=== PATIENT | male | born 1970 | race Caucasian/White ===

== ENCOUNTER 2018-09-14 05:48 | Inpatient (IN) | payer OTHER ==
[~2018-09-14] VITALS: Ht 193 cm; Wt 105.4 kg
[2018-09-14] VITALS (36 sets, daily range): BP systolic 130–181; BP diastolic 63–102; PULSE 86–118; RESP 14–26; Ht 193 cm; Wt 105.4 kg
[2018-09-14] MEDS ORDERED: POLYMYXIN/BACITRACIN 1L IRRIG ONE (06:47)
[2018-09-14] MEDS ORDERED: ROCURONIUM 50 MG INJ ONE (07:00)
[2018-09-14] MEDS ORDERED: DEXAMETHASONE 4 MG/ML 5 ML INJ ONE (07:00)
[2018-09-14] MEDS ORDERED: METOCLOPRAMIDE 10 MG INJ ONE (07:00)
[2018-09-14] MEDS ORDERED: CLINDAMYCIN 900 MG/50 ML D5W IVPB IVPB ONE (07:00)
--- NOTE | 2018-09-14 07:08 | HPN ---
Date/Time of Note Date/Time of Note DATE: 09/14/18 TIME: 07:08 Interval H&P Admission Note Pt. seen H&P reviewed: No system changes BRITTANY BAUMAN MD Sep 14, 2018 07:08
[2018-09-14] MEDS ORDERED: BUPIVACAINE 0.5%/EPI (SDV) 30 ML INJ ONE (07:11)
[2018-09-14] MEDS ORDERED: GELATIN SIZE 100 SPONGE ONE (07:11)
[2018-09-14] MEDS ORDERED: THROMBIN 5000 UNIT VIAL ONE (07:11)
[2018-09-14] MEDS ORDERED: TAMS-14 PO (07:12)
[2018-09-14] MEDS ORDERED: LISI-471 PO (07:13)
[2018-09-14] MEDS ORDERED: HYDR-3672 PO (07:13)
[2018-09-14] MEDS ORDERED: GABA300C16 PO (07:13)
[2018-09-14] MEDS ORDERED: CYCL5TAB PO (07:14)
--- NOTE | 2018-09-14 07:20 | PREAC ---
Date/Time of Note Date/Time of Note DATE: 09/14/18 TIME: : Anesthesia Eval and Record Evaluation Time Pre-Procedure Interview DATE: 09/14/18 TIME: 07:19 Age 48 Sex male NPO: 8 hrs Preoperative diagnosis cervical spine myelopathy Planned procedure anterior cervical fusion Past Medical History Past Medical History: Includes Cardio: HTN, Arrythmia Neuro: Peripheral neuropathy Psych: Anxiety Surgery & Anesthesia Issues Hx of difficult intubation Meds Anticoagulation: No Beta Aliza within 24 hr: No Reason Beta Aliza not given: Pt. not on B-Aliza Reported Medications Cyclobenzaprine Hcl* (Cyclobenzaprine Hcl*) 5 Mg Tablet, 5 MG PO BID PRN for MUSCLE SPASMS, #60 TAB 09/14/18 Lisinopril* (Lisinopril*) 20 Mg Tablet, 20 MG PO BID, #30 TAB 09/14/18 Hydralazine Hcl* (Hydralazine Hcl*) 50 Mg Tab, 50 MG PO TID, #90 TAB 09/14/18 Gabapentin* (Gabapentin*) 300 Mg Capsule, 300 MG PO BID, #60 CAP 09/14/18 Tamsulosin Hcl* (Flomax*) 0.4 Mg Cap.er.24h, 0.4 MG PO DAILY, CAP 09/14/18 Current Medications Clindamycin HCl/ Dextrose 50 ml @ 50 mls/hr ONCE IVPB ; Start 09/14/18 at 07:30; Stop 09/14/18 at 08:29 Meds reviewed: Yes Allergies Coded Allergies: Penicillins (Verified Allergy, Unknown, SWELLING OF THROAT, 09/14/18) Sulfa (Sulfonamide Antibiotics) (Verified Allergy, Unknown, SWELLING OF THROAT, 09/14/18) amlodipine (Verified Allergy, Unknown, INCREASED BP RASH, 09/14/18) clonidine (Verified Allergy, Unknown, SWELLING OF THROAT, 09/14/18) digoxin (Verified Allergy, Unknown, SWELLING OF THROAT, 09/14/18) heparin (Verified Allergy, Unknown, SWELLING, 09/14/18) hydrocortisone (Verified Allergy, Unknown, HIVES, 09/14/18) ibuprofen (Verified Allergy, Unknown, SWELLING OF THROAT, 09/14/18) lactulose (Verified Allergy, Unknown, DIARREA, 09/14/18) zolpidem (Verified Allergy, Unknown, SWELLING OF THROAT, 09/14/18) Allergies Reviewed: Yes Labs/Studies Labs Reviewed: Reviewed by anesthesiologist test: N/A Studies: ECG, CXR Pre-procedure Exam Last vitals Vital Signs Date Temp Pulse Resp B/P (MAP) Pulse Ox O2 O2 Flow FiO2 Time Delivery Rate 09/14/18 99.0 86 18 142/94 96 Room Air 06:09 (110) Airway: Adequate mouth opening, Adequate thyromental dist Mallampati: Mallampati IV Teeth: Normal Lung: Normal Heart: Normal ASA Physical Status ASA physical status: 3 Emergency: None Planned Anesthetic General/MAC: ETT Planned Pain Management Parenteral pain med, Local by surgeon Pre-operative Attestations Prior to commencing anesthesia and surgery, the patient was re-evaluated, there was verification of: *The patient's identity *The results of appropriate recent lab work and preoperative vital signs *The above evaluation not changing prior to induction *Anesthetic plan, risk benefits, alternative and complications discussed with patient/family; questions answered; patient/family understands, accepts and w ishes to proceed. PETE SOL MD Sep 14, 2018 07:20
[2018-09-14] MEDS ORDERED: ONDANSETRON 4 MG INJ IV PRN ×2 (07:30→14:30)
[2018-09-14] MEDS ORDERED: MEPERIDINE 25 MG INJ IV PRN (07:30)
[2018-09-14] MEDS ORDERED: hydrALAzine 20 MG INJ IV PRN (07:30)
[2018-09-14] MEDS ORDERED: HYDROmorphONE 1 MG/5 ML IV SYRINGE IV PRN ×3 (07:30)
[2018-09-14] MEDS ORDERED: DIPHENHYDRAMINE 50 MG INJ IV PRN (07:30)
[2018-09-14] MEDS ORDERED: LIDOCAINE 2% (SDV) 5 ML INJ ONE (07:30)
[2018-09-14] MEDS ORDERED: MIDAZOLAM 1 MG/ML 2 ML INJ ONE (07:30)
[2018-09-14] MEDS ORDERED: IPRATROPIUM (NEB) 0.5 MG/2.5 ML AMP HHN PRN (07:30)
[2018-09-14] MEDS ORDERED: CLINDAMYCIN 900 MG/D5W (PMX) 50 ML IVPB SCH (07:30)
[2018-09-14] MEDS ORDERED: PROPOFOL 20 ML ONE (07:30)
[2018-09-14] MEDS ORDERED: LABETALOL HCL 20MG INJ IV PRN (07:30)
[2018-09-14] MEDS ORDERED: FENTAnyl 50 MCG/ML VIAL IV PRN ×2 (07:30)
[2018-09-14] MEDS ORDERED: LEVALBUTEROL (NEB) 1.25 MG/0.5 ML AMP HHN PRN (07:30)
[2018-09-14] MEDS ORDERED: SUCCINYLCHOLINE CHLORIDE 100 MG/5 ML SYG IV ONE (07:31)
[2018-09-14] MEDS ORDERED: ONDANSETRON 4 MG INJ ONE (07:31)
[2018-09-14] MEDS ORDERED: HYDROmorphONE 2 MG/ML SYG ONE (08:32)
[2018-09-14] MEDS ORDERED: KETAMINE (50 MG/ML) 10 ML VIAL ONE (08:33)
[2018-09-14] MEDS ORDERED: PHENYLephrine (100 MCG/ML) 10ML SYG ONE (08:42)
[2018-09-14] MEDS ORDERED: HEMOSTATIC MATRIX SYG ZFS ONE (09:28)
--- NOTE | 2018-09-14 14:22 | OPR ---
Date/Time of Note Date/Time of Note DATE: 09/14/18 TIME: 14:11 Operative Report Free Text/Dictation DATE OF OPERATION: 09/14/2018 PREOPERATIVE DIAGNOSES: 1. C5-6 degenerative disk disease with right paracental disk herniation with bilateral foraminal stenosis with radiculopathy 2. C6-7 degenerative disk disease with right paracental disk herniation with bilateral foraminal stenosis with radiculopathy 3. Cervical scoliosis POSTOPERATIVE DIAGNOSES: 1. C5-6 degenerative disk disease with right paracental disk herniation with bilateral foraminal stenosis with radiculopathy 2. C6-7 degenerative disk disease with right paracental disk herniation with bilateral foraminal stenosis with radiculopathy 3. Cervical scoliosis OPERATION PERFORMED: 1. Anterior cervical level C5-6 diskectomy with central and foraminal d ecompression 2. Anterior cervical disc C5-6 instrumented fusion with allograft 3.Anterior cervical level C6-7 diskectomy with central and foraminal decompression 4. Anterior cervical disc C6-7 instrumented fusion with allograft 5. Use of operative microscope SURGEON: Brittany Bauman MD BUILDING INSPECTION ENGINEER: eGr Jones MD INDICATIONS: Patient is a 48 -year-old male who presents with a several year history of neck and bilateral shoulder and arm pain with weakness. He had progressive 3/5 weakness in his left greater than right biceps and triceps. After having failed all attempts at conservative management, he understood the risks included, but were not limited to, infection, neurologic injury, blood loss, dural tear, pseudarthosis, adjacent segment disease, persistence of preoperative symptoms and a potential need for further operative procedures and elected to proceed with surgery. PROCEDURE IN DETAIL: The patient was identified in the pre-operative area where the operative site was marked in indelible ink. He was brought in the operating room. General anesthesia was obtained. Preoperative antibiotics were given. He was carefully positioned supine on the radiolucent table. The arms were padded and tucked at the sides. The neck was sterilely prepped and draped in the usual fashion. A standard left-sided skin incision was made in a prominent anterior skin fold. This was continued down through subcutaneous tissue to the platysma fascia. Full-thickness skin flaps were developed. The platysma was split in line with the direction of its fibers. The dissection proceeded through the deep cervical fascia at the interval between the esophagus and spine. The prevertebral fascia was carefully incised, cleared off at the anterior aspect of the C5-7 disk space. The anterior longitudinal ligament was carefully isolated as was the longus coli bilaterally. This procedure took 1.5 hours longer due to the patient's scoliotic deformity and larger bridging anterior osteophytes across the C5-C7 disk space which made the decompression and implant positioning more difficult. A Aragon retraction cannula was placed into the C5 vertebral body, and an intraoperative radiograph was obtained to confirm the location of the midline along with the operative level. Once this was confirmed, a 2nd Aragon pin was placed in the C6 vertebral body, and the longus colli was mobilized bilaterally using bipolar cautery and an elevator. A deep self-retaining retractor was placed underneath the longus colli bilaterally and then distraction was applied across the interspace. TThe operative microscope was at this point brought in. The osteophyte projecting over the anterior aspect of the C5-6 disk space was at this point resected with a spinal rongeur, and then the anterior portion of the disk was incised with a #15 blade. The disk was excised in its entirety using a series of pituitary rongeurs and angled curettes back to the posterior longitudinal ligament. The uncovertebral osteophyte was resected to allow for foraminal decompression. A foraminotomy was performed bilaterally until a probe could be easily passed along the pathway of the C6 nerve roots. The posterior disk and the PLL were also removed using a nerve hook and a 2mm kerrison. The cord was noted to be decompressed. Hemostasis was obtained at this point, and then a series of trial sizers were used to select an appropriated size allograft spacer. Care was take not to disrupt the endplates. Intraoperative radiographs demonstrated good alignment of the trial, and then the final implant was selected and then inserted into the disk space. This was positioned appropriately and extended to the back of the C5 and C6 vertebral bodies. We used a 6mm height and 7 degree lordotic allograft implant. We then focused on the C6-7 level. The longus colli was mobilized bilaterally using bipolar cautery and an elevator. A deep self-retaining retractor was placed underneath the longus colli bilaterally and then distraction was applied across the interspace. The operative microscope was at this point brought in. The osteophyte projecting over the anterior aspect of the C5-6 disk space was at this point resected with a spinal rongeur and a vicki, and then the anterior portion of the disk was incised with a #15 blade. The disk was excised in its entirety using a series of pituitary rongeurs and angled curettes back to the posterior longitudinal ligament. The uncovertebral osteophyte was resected to allow for foraminal decompression. A foraminotomy was performed bilaterally until a probe could be easily passed along the pathway of the C7 nerve roots. The posterior disk and the PLL were also removed using a nerve hook and a 2mm kerrison. The cord was noted to be decompressed. Hemostasis was obtained at this point, and then a series of trial sizers were used to select an appropriated size allograft spacer. Care was take not to disrupt the endplates. Intraoperative radiographs demonstrated good alignment of the trial, and then the final implant was selected and then inserted into the disk space. This was positioned appropriately and extended to the back of the C6 and C7 vertebral bodies. We used a 7mm height and 7 degree lordotic allograft implant. We then chose an appropriate sized plate (32mm) was placed and secured it in standard fashion. X-Rays were taken to ensure appropriate alignment and length of the plate as well as screw sizes. The operative site was washed out extensively with sterile normal saline. There was no significant bleeding. The [place] pins were removed, and the sites were blocked off with bone wax. The platysma fascia was then closed with 3-0 Vicryl suture in a running simple fashion over a medium hemovac drain, followed by 4-0 moncryl to close the skin in a running subcuticular fashion. Dermabond was placed, followed by a sterile dressing. The patient was extubated and transferred out to the postanesthesia care unit in a hard collar in good condition. There were no complications. Procedure Date: Sep 14, 2018 Preoperative Diagnosis 1. C5-6 degenerative disk disease with right paracental disk herniation with bilateral foraminal stenosis with radiculopathy 2. C6-7 degenerative disk disease with right paracental disk herniation with bilateral foraminal stenosis with radiculopathy 3. Cervical scoliosis Postoperative Diagnosis 1. C5-6 degenerative disk disease with right paracental disk herniation with bilateral foraminal stenosis with radiculopathy 2. C6-7 degenerative disk disease with right paracental disk herniation with bilateral foraminal stenosis with radiculopathy 3. Cervical scoliosis Operation/Procedure Performed 1. Anterior cervical level C5-6 diskectomy with central and foraminal decompression 2. Anterior cervical disc C5-6 instrumented fusion with allograft 3.Anterior cervical level C6-7 diskectomy with central and foraminal decompression 4. Anterior cervical disc C6-7 instrumented fusion with allograft 5. Use of operative microscope Surgeon see signature line Installation Technician Ger Navarro MD Anesthesia Type: general Estimated Blood Loss: 10 - 50 ml's Transfusion none Specimen none Grafts/Implants see op note Complications none Pt Condition Post Procedure: stable Disposition: PACU Procedure Description PROCEDURE IN DETAIL: The patient was identified in the pre-operative area where the operative site was marked in indelible ink. He was brought in the operating room. General anesthesia was obtained. Preoperative antibiotics were given. He was carefully positioned supine on the radiolucent table. The arms were padded and tucked at the sides. The neck was sterilely prepped and draped in the usual fashion. A standard left-sided skin incision was made in a prominent anterior skin fold. This was continued down through subcutaneous tissue to the platysma fascia. Full-thickness skin flaps were developed. The platysma was split in line with the direction of its fibers. The dissection proceeded through the deep cervical fascia at the interval between the esophagus and spine. The prevertebral fascia was carefully incised, cleared off at the anterior aspect of the C5-7 disk space. The anterior longitudinal ligament was carefully isolated as was the longus coli bilaterally. This procedure took 1.5 hours longer due to the patient's scoliotic deformity and larger bridging anterior osteophytes across the C5-C7 disk space which made the decompression and implant positioning more difficult. A Aragon retraction cannula was placed into the C5 vertebral body, and an intraoperative radiograph was obtained to confirm the location of the midline along with the operative level. Once this was confirmed, a 2nd Aragon pin was placed in the C6 vertebral body, and the longus colli was mobilized bilaterally using bipolar cautery and an elevator. A deep self-retaining retractor was plac ed underneath the longus colli bilaterally and then distraction was applied across the interspace. TThe operative microscope was at this point brought in. The osteophyte projecting over the anterior aspect of the C5-6 disk space was at this point resected with a spinal rongeur, and then the anterior portion of the disk was incised with a #15 blade. The disk was excised in its entirety using a series of pituitary rongeurs and angled curettes back to the posterior longitudinal ligament. The uncovertebral osteophyte was resected to allow for foraminal decompression. A foraminotomy was performed bilaterally until a probe could be easily passed along the pathway of the C6 nerve roots. The posterior disk and the PLL were also removed using a nerve hook and a 2mm kerrison. The cord was noted to be decompressed. Hemostasis was obtained at this point, and then a series of trial sizers were used to select an appropriated size allograft spacer. Care was take not to disrupt the endplates. Intraoperative radiographs demonstrated good alignment of the trial, and then the final implant was selected and then inserted into the disk space. This was positioned appropriately and extended to the back of the C5 and C6 vertebral bodies. We used a 6mm height and 7 degree lordotic allograft implant. We then focused on the C6-7 level. The longus colli was mobilized bilaterally using bipolar cautery and an elevator. A deep self-retaining retractor was placed underneath the longus colli bilaterally and then distraction was applied across the interspace. The operative microscope was at this point brought in. The osteophyte projecting over the anterior aspect of the C5-6 disk space was at this point resected with a spinal rongeur and a vicki, and then the anterior portion of the disk was incised with a #15 blade. The disk was excised in its entirety using a series of pituitary rongeurs and angled curettes back to the posterior longitudinal ligament. The uncovertebral osteophyte was resected to allow for foraminal decompression. A foraminotomy was performed bilaterally until a probe could be easily passed along the pathway of the C7 nerve roots. The posterior disk and the PLL were also removed using a nerve hook and a 2mm kerrison. The cord was noted to be decompressed. Hemostasis was obtained at this point, and then a series of trial sizers were used to select an appropriated size allograft spacer. Care was take not to disrupt the endplates. Intraoperative radiographs demonstrated good alignment of the trial, and then the final implant was selected and then inserted into the disk space. This was positioned appropriately and extended to the back of the C6 and C7 vertebral bodies. We used a 7mm height and 7 degree lordotic allograft implant. We then chose an appropriate sized plate (32mm) was placed and secured it in standard fashion. X-Rays were taken to ensure appropriate alignment and length of the plate as well as screw sizes. The operative site was washed out extensively with sterile normal saline. There was no significant bleeding. The [place] pins were removed, and the sites were blocked off with bone wax. The platysma fascia was then closed with 3-0 Vicryl suture in a running simple fashion over a medium hemovac drain, followed by 4-0 moncryl to close the skin in a running subcuticular fashion. Dermabond was placed, followed by a sterile dressing. The patient was extubated and transferred out to the postanesthesia care unit in a hard collar in good condition. There were no complications. BRITTANY BAUMAN MD Sep 14, 2018 14:22
[2018-09-14] MEDS ORDERED: PROCHLORPERAZINE 10 MG TAB PO PRN (14:30)
[2018-09-14] MEDS ORDERED: HYDROCODONE/APAP (5/325) TAB PO PRN ×2 (14:30)
[2018-09-14] MEDS ORDERED: ACETAMINOPHEN 325 MG TAB PO PRN (14:30)
[2018-09-14] MEDS ORDERED: NALOXONE (0.4 MG/ML) INJ IV PRN (14:30)
[2018-09-14] MEDS ORDERED: NACL 0.9% 3 ML SYG IV SCH (14:30)
[2018-09-14] MEDS: HYDROmorphONE 0.2 MG/ML PCA IV SCH (15:04)
--- NOTE | 2018-09-14 16:06 | CONS ---
DATE OF ADMISSION: 09/14/2018 DATE OF CONSULTATION: 09/14/2018 TYPE OF CONSULTATION: Postoperative medical. Thank you very much for allowing me to evaluate this 48-year-old male who just underwent cervical spi ne surgery. HISTORICAL EVENTS: As you well know, the patient was evaluated by you in 06/2018 when he presented w ith a 10-month history of worsening neck pain. He had undergone physical therapy for the same withou t relief. Because of his continued pain and following imaging studies, he elected to proceed with [place] rgical intervention. Postoperatively in recovery, he is comfortable, not tachypneic, but somnolent. PAST MEDICAL HISTORY: Includes: 1. Hypertension. 2. Neck, shoulder and knee surgery. INTOLERANCES AND ALLERGIES: INCLUDE: 1. IBUPROFEN. 2. PENICILLIN. 3. SULFA. SOCIAL HISTORY: Single, does not drink alcohol, does not smoke. FAMILY HISTORY: To be reviewed later. MEDICATIONS PRIOR TO ADMISSION: 1. Cyclobenzaprine 5 mg 1 tablet as needed t.i.d. 2. Atorvastatin 40 mg per day. 3. [place] 5/325. 4. Gabapentin 300 mg t.i.d. 5. Metoprolol 100 mg per day. 6. Hydralazine 50 mg t.i.d. PHYSICAL EXAMINATION: GENERAL: Somnolent male in no acute distress. VITAL SIGNS: BP 166/78, pulse 70, respirations were 18. He was afebrile. HEENT: Eyes: Extraocular muscles were grossly full. Mucous membranes were dry. NECK: Soft immobilizer in place. LUNGS: Clear. HEART: Regular. ABDOMEN: Nontender. Liver and spleen were not palpable. No mass or tenderness were noted. EXTREMITIES: No edema. Calves are nontender. Pulses are 2+. NEUROLOGIC: No lateralizing motor weakness. IMPRESSION: 1. Stable postoperative cervical spine surgery. 2. History of hypertension. Blood pressure meds will be resumed and blood pressure monitored. PLAN: We will follow daily for signs and symptoms of thromboembolic disease. Dictated By: ANIL ROB/NTS Conf#: [id number] DID#: [id number] CC: BRITTANY BAUMAN MD;*EndCC*
--- NOTE | 2018-09-14 17:50 | PAC ---
Date/Time of Note Date/Time of Note DATE: 09/14/18 TIME: 17:50 Post-Anesthesia Notes Post-Anesthesia Note Last documented vital signs Vital Signs Date Temp Pulse Resp B/P (MAP) Pulse Ox O2 O2 Flow FiO2 Time Delivery Rate 09/14/18 101 20 144/79 97 Nasal 16:00 (100) Cannula 09/14/18 2.0 15:25 09/14/18 98.3 14:24 Activity: WNL Respiratory function: WNL Cardiovascular function: WNL Mental status: Baseline Pain reasonably controlled: Yes Hydration appropriate: Yes Nausea/Vomiting absent: Yes PETE SOL MD Sep 14, 2018 17:50
[2018-09-14] MEDS ORDERED: DEXAMETHASONE 10 MG/ML 1 ML INJ IV ONE (19:30)
[2018-09-14] MEDS ORDERED: LISINOPRIL 20 MG TAB PO SCH (21:00)
[2018-09-14] MEDS ORDERED: METOPROLOL (XL) 25 MG TAB PO SCH (21:00)
[2018-09-14] MEDS: DEXTROSE 5%-0.45% NACL 1,000 ML IV SCH (21:08)
[2018-09-14] MEDS: TAMSULOSIN (SR) 0.4 MG CAP PO SCH (21:13)
[2018-09-14] MEDS: LORAZEPAM 4 MG/ML VIAL IV PRN (23:05)
[2018-09-15] VITALS (13 sets, daily range): BP systolic 132–182; BP diastolic 69–97; PULSE 109–123; RESP 16–20
[2018-09-15] MEDS ORDERED: ALBUTEROL 0.083% (NEB) 2.5 MG/3 ML AMP HHN PRN (03:08)
[2018-09-15] MEDS ORDERED: ENALAPRILAT 2.5 MG INJ IV PRN ×2 (03:08→03:30)
[2018-09-15] MEDS ORDERED: ENALAPRILAT 1.25 MG INJ IV PRN (03:13)
[2018-09-15] MEDS: DEXTROSE 5%-0.45% NACL 1,000 ML IV SCH (06:25)
--- NOTE | 2018-09-15 08:45 | CONS ---
Date/Time of Note Date/Time of Note DATE: 09/15/18 TIME: 08:43 Assessment/Plan Assessment/Plan Assessment/Plan 1. Post op cx spine surg with diff swallowing and mod pain. 2. Tachycardia sec to above 3. HBP, will change to iv meds 4. Labs rev Result Diagram: 09/15/18 0429 09/15/18 0429 Results 24hrs Laboratory Tests Test 09/15/18 04:29 09/15/18 07:46 Hemoglobin 14.6 Hematocrit 42.2 Sodium Level 142 Potassium Level 4.0 Chloride Level 101 Carbon Dioxide Level 24 Anion Gap 17 H Blood Urea Nitrogen 17 Creatinine 0.88 Est Glomerular Filtrat Rate mL/min > 60 Glucose Level 214 Calcium Level 10.1 Lab Scanned Report REFERENCE LAB Consultation Date/Type/Reason Admit Date/Time Sep 14, 2018 at 05:48 Initial Consult Date Detailed Summary Respiratory: No shortness of breath Cardiovascular: No chest pain Gastrointestinal: other (diff swallowing solids and liquids and int cough) Genitourinary: other (calvillo in place) Musculoskeletal: neck pain (severe) Exam/Review of Systems Vital Signs Vitals Vital Signs Date Temp Pulse Resp B/P (MAP) Pulse Ox O2 O2 Flow FiO2 Time Delivery Rate 09/15/18 98.4 123 19 132/88 98 07:30 (103) 09/15/18 Nasal 4.0 05:12 Cannula Intake and Output 09/14/18 09/14/18 09/15/18 1515:00 23:00 07:00 IntakeIntake Total 3250 ml 540 ml 900 ml OutputOutput Total 620 ml 1810 ml 1785 ml BalanceBalance 2630 ml -1270 ml -885 ml Exam Respiratory: clear to auscultation Cardiovascular: regular rate and rhythm Gastrointestinal: soft Extremities: No edema Medications Medications Current Medications Acetaminophen/ Hydrocodone Bitart ([place] (5/325)) 1 tab Q4H PRN PO PAIN LEVEL 1-5; Start 09/14/18 at 14:30; Status Hold Acetaminophen/ Hydrocodone Bitart ([place] (5/325)) 2 tab Q4H PRN PO PAIN LEVEL 6-10; Start 09/14/18 at 14:30; Status Hold Prochlorperazine (Compazine) 10 mg Q4H PRN PO NAUSEA AND/OR VOMITING; Start 09/14/18 at 14:30 Ondansetron HCl (Zofran Inj) 4 mg Q6H PRN IV NAUSEA AND/OR VOMITING; Start 09/14/18 at 14:30 Docusate Sodium (Colace) 100 mg BID PO ; Start 09/15/18 at 09:00 Acetaminophen (Tylenol Tab) 650 mg Q4H PRN PO fever; Start 09/14/18 at 14:30 IV Flush (NS 3 ml) 3 ml PER PROTOCOL IV ; Start 09/14/18 at 14:30 Hydromorphone HCl (Dilaudid LAB SUPPORT TECH) Q4PCA IV Last administered on 09/14/18at 15:04; Admin Dose 6 MG; Start 09/14/18 at 14:30 Naloxone HCl (Narcan) 0.2 mg Q2M PRN IV overdose; Start 09/14/18 at 14:30 Hydralazine HCl (Apresoline) 50 mg TID PO Last administered on 09/14/18at 21:13; Admin Dose 50 MG; Start 09/14/18 at 21:00 Lisinopril (Zestril) 20 mg BID PO Last administered on 09/14/18at 21:13; Admin Dose 20 MG; Start 09/14/18 at 21:00 Tamsulosin HCl (Flomax) 0.4 mg HS PO Last administered on 09/14/18at 21:13; Admin Dose 0.4 MG; Start 09/14/18 at 21:00 Lorazepam (Ativan) 0.5 mg Q12 PRN IV ANXIETY Last administered on 09/14/18at 23:05; Admin Dose 0.5 MG; Start 09/14/18 at 21:00 Albuterol (Proventil 0.083% (Neb)) 2.5 mg Q4H RESP THERAPY PRN HHN SHORTNESS OF BREATH Last administered on 09/15/18at 04:02; Admin Dose 2.5 MG; Start 09/15/18 at 03:08 Enalaprilat (Vasotec Iv) 1.25 mg Q6H IV ; Start 09/15/18 at 09:30; Status UNV Sodium Chloride 1,000 ml @ 80 mls/hr [id number] IV ; Start 09/15/18 at 09:00; Status UNV Clonidine HCl (Catapres-Tts 2 Patch) 1 patch Q7D TRANSDERM ; Start 09/15/18 at 09:00; Status UNV ANIL RODRIGUEZ MD Sep 15, 2018 08:45
[2018-09-15] MEDS ORDERED: CLONIDINE 0.2 MG/24 HR PATCH TRANSDERM SCH (09:00)
[2018-09-15] MEDS: DOCUSATE SODIUM 100 MG CAP PO SCH ×2 (09:00→21:00)
[2018-09-15] MEDS ORDERED: METOPROLOL 5 MG INJ IV SCH ×3 (09:00→18:00)
[2018-09-15] MEDS: hydrALAzine 20 MG INJ IV SCH ×4 (09:18→23:23)
[2018-09-15] MEDS: ENALAPRILAT 2.5 MG INJ IV SCH ×3 (10:12→21:30)
--- NOTE | 2018-09-15 12:53 | CONS ---
Date/Time of Note Date/Time of Note DATE: 09/15/18 TIME: 12:45 Assessment/Plan Assessment/Plan Result Diagram: 09/15/18 0429 09/15/18 0429 Results 24hrs Laboratory Tests Test 09/15/18 04:29 09/15/18 07:46 Hemoglobin 14.6 Hematocrit 42.2 Sodium Level 142 Potassium Level 4.0 Chloride Level 101 Carbon Dioxide Level 24 Anion Gap 17 H Blood Urea Nitrogen 17 Creatinine 0.88 Est Glomerular Filtrat Rate mL/min > 60 Glucose Level 214 Calcium Level 10.1 Lab Scanned Report REFERENCE LAB Consultation Date/Type/Reason Admit Date/Time Sep 14, 2018 at 05:48 Initial Consult Date 24 HR Interval Summary Free Text/Dictation S: 48 yo M POD #1 s/p C5-C7 ACDF. Patient w/ dysphagia and neck pain. Patient w/ tachycardia and HTN overnight. Pain currently controlled w/p APPLICATION INTEGRATION SPECIALIST O: Vital Signs Date Temp Pulse Resp B/P (MAP) Pulse Ox O2 O2 Flow FiO2 Time Delivery Rate 09/15/18 98.2 18 136/69 94 Room Air 10:30 (91) 09/15/18 120 10:00 09/15/18 4.0 05:12 Gen: AAOx3 Spine: Patient w/ decreased sensation in Left greater than right upper extremity. Exam limited to pain and patient compliance. Cervical incision C/D/I A/P:48 yo M POD #1 s/p C5-C7 ACDF 1. follow-up med recs for HTN and tachycardia 2. continue pain control w/ dilaudid APPLICATION INTEGRATION SPECIALIST 3. Cervical CT scan stat to surgical site given difficult neuro-exam 4. speech pathology consult for dysphagia 5. Decadron 10mg IV x 1 for dysphagia and swelling Exam/Review of Systems Vital Signs Vitals Vital Signs Date Temp Pulse Resp B/P (MAP) Pulse Ox O2 O2 Flow FiO2 Time Delivery Rate 09/15/18 98.2 18 136/69 94 Room Air 10:30 (91) 09/15/18 120 10:00 09/15/18 4.0 05:12 Intake and Output 09/14/18 09/14/18 09/15/18 1515:00 23:00 07:00 IntakeIntake Total 3250 ml 540 ml 900 ml OutputOutput Total 620 ml 1810 ml 1785 ml BalanceBalance 2630 ml -1270 ml -885 ml Medications Medications Current Medications Acetaminophen/ Hydrocodone Bitart ([place] (5/325)) 1 tab Q4H PRN PO PAIN LEVEL 1-5; Start 09/14/18 at 14:30; Status Hold Acetaminophen/ Hydrocodone Bitart ([place] (5/325)) 2 tab Q4H PRN PO PAIN LEVEL 6-10; Start 09/14/18 at 14:30; Status Hold Prochlorperazine (Compazine) 10 mg Q4H PRN PO NAUSEA AND/OR VOMITING; Start 09/14/18 at 14:30 Ondansetron HCl (Zofran Inj) 4 mg Q6H PRN IV NAUSEA AND/OR VOMITING; Start 09/14/18 at 14:30 Docusate Sodium (Colace) 100 mg BID PO ; Start 09/15/18 at 09:00 Acetaminophen (Tylenol Tab) 650 mg Q4H PRN PO fever; Start 09/14/18 at 14:30 IV Flush (NS 3 ml) 3 ml PER PROTOCOL IV ; Start 09/14/18 at 14:30 Hydromorphone HCl (Dilaudid APPLICATION INTEGRATION SPECIALIST) Q4PCA IV Last administered on 09/14/18at 15:04; Admin Dose 6 MG; Start 09/14/18 at 14:30 Naloxone HCl (Narcan) 0.2 mg Q2M PRN IV overdose; Start 09/14/18 at 14:30 Tamsulosin HCl (Flomax) 0.4 mg HS PO Last administered on 09/14/18at 21:13; Admin Dose 0.4 MG; Start 09/14/18 at 21:00 Lorazepam (Ativan) 0.5 mg Q12 PRN IV ANXIETY Last administered on 09/14/18at 23:05; Admin Dose 0.5 MG; Start 09/14/18 at 21:00 Albuterol (Proventil 0.083% (Neb)) 2.5 mg Q4H RESP THERAPY PRN HHN SHORTNESS OF BREATH Last administered on 09/15/18at 04:02; Admin Dose 2.5 MG; Start 09/15/18 at 03:08 Enalaprilat (Vasotec Iv) 1.25 mg Q6H IV Last administered on 09/15/18at 10:12; Admin Dose 1.25 MG; Start 09/15/18 at 09:30 Sodium Chloride 1,000 ml @ 100 mls/hr Q10H IV ; Start 09/15/18 at 09:00 Hydralazine HCl (Apresoline) 10 mg Q6 IV Last administered on 09/15/18at 09:18; Admin Dose 10 MG; Start 09/15/18 at 09:00 Metoprolol Tartrate (Lopressor) 5 mg Q6 IV ; Start 09/15/18 at 12:00; Status UNV Dexamethasone (Decadron) 10 mg ONCE ONCE IV ; Start 09/15/18 at 13:00; Stop 09/15/18 at 13:01; Status UNV BRITTANY BAUMAN MD Sep 15, 2018 12:53
[2018-09-15] MEDS: SOD CHLORIDE 0.9% 1,000 ML IV SCH ×2 (13:17→23:30)
[2018-09-15] MEDS ORDERED: DEXAMETHASONE 10 MG/ML 1 ML INJ IV ONE (14:30)
[2018-09-15] MEDS ORDERED: METOPROLOL (XL) 50 MG TAB PO SCH (16:38)
[2018-09-15] MEDS: TAMSULOSIN (SR) 0.4 MG CAP PO SCH (21:00)
[2018-09-15] MEDS: LORAZEPAM 4 MG/ML VIAL IV PRN (23:09)
[2018-09-16] VITALS (9 sets, daily range): BP systolic 144–166; BP diastolic 85–99; PULSE 93–118; RESP 16–19
[2018-09-16] MEDS: ENALAPRILAT 2.5 MG INJ IV SCH ×4 (03:39→22:04)
[2018-09-16] MEDS: HYDROmorphONE 0.2 MG/ML PCA IV SCH (04:13)
[2018-09-16] MEDS: SOD CHLORIDE 0.9% 1,000 ML IV SCH ×2 (05:00→09:34)
[2018-09-16] MEDS: hydrALAzine 20 MG INJ IV SCH ×3 (07:03→17:45)
[2018-09-16] MEDS: DOCUSATE SODIUM 100 MG CAP PO SCH ×2 (08:40→21:00)
--- NOTE | 2018-09-16 08:50 | CONS ---
Date/Time of Note Date/Time of Note DATE: 09/16/18 TIME: 08:47 Assessment/Plan Assessment/Plan Assessment/Plan 1. Post op cx spine surgery with residual diff swallowing, will rev with ortho, CT neck rev 2. Tachycardia sec to pain, will add beta blockerr iv (should have received yesterday on transfer_ 3. WBC is elevated sec to steroids, ua and cult ordered Result Diagram: 09/16/18 0637 09/16/18 0637 Results 24hrs Laboratory Tests Test 09/16/18 06:37 White Blood Count 15.6 H Red Blood Count 4.90 Hemoglobin 14.3 Hematocrit 42.0 Mean Corpuscular Volume 85.7 Mean Corpuscular Hemoglobin 29.2 Mean Corpuscular Hemoglobin Concent 34.0 Red Cell Distribution Width 12.9 Platelet Count 231 Mean Platelet Volume 10.3 Immature Granulocytes % 0.400 Neutrophils % 69.9 Lymphocytes % 17.1 Monocytes % 12.5 H Eosinophils % 0.0 Basophils % 0.1 Nucleated Red Blood Cells % 0.0 Immature Granulocytes # 0.070 H Neutrophils # 10.9 H Lymphocytes # 2.7 Monocytes # 2.0 H Eosinophils # 0.0 Basophils # 0.0 Nucleated Red Blood Cells # 0.0 Sodium Level 145 H Potassium Level 4.0 Chloride Level 104 Carbon Dioxide Level 28 Anion Gap 13 Blood Urea Nitrogen 21 H Creatinine 0.78 Est Glomerular Filtrat Rate mL/min > 60 Glucose Level 157 Calcium Level 9.7 Phosphorus Level 3.7 Magnesium Level 1.8 Thyroid Stimulating Hormone (TSH) 0.462 L Consultation Date/Type/Reason Admit Date/Time Sep 14, 2018 at 05:48 Initial Consult Date Detailed Summary Respiratory: cough (is intermittent and not able to swallow solids and liquids); No shortness of breath Cardiovascular: No chest pain Gastrointestinal: other (as above) Musculoskeletal: neck pain (moderate) Exam/Review of Systems Vital Signs Vitals Vital Signs Date Temp Pulse Resp B/P (MAP) Pulse Ox O2 O2 Flow FiO2 Time Delivery Rate 09/16/18 110 08:35 09/16/18 98.0 16 155/89 94 08:07 (111) 09/16/18 3.0 01:07 09/15/18 Nasal 20:00 Cannula Intake and Output 09/15/18 09/15/18 09/16/18 1515:00 23:00 07:00 IntakeIntake Total 650 ml 650 ml 0 ml OutputOutput Total 435 ml 835 ml 1810 ml BalanceBalance 215 ml -185 ml -1810 ml Exam Respiratory: clear to auscultation Cardiovascular: regular rate and rhythm Gastrointestinal: soft Extremities: No edema, No tenderness Medications Medications Current Medications Acetaminophen/ Hydrocodone Bitart ([place] (5/325)) 1 tab Q4H PRN PO PAIN LEVEL 1-5; Start 09/14/18 at 14:30; Status Hold Acetaminophen/ Hydrocodone Bitart ([place] (5/325)) 2 tab Q4H PRN PO PAIN LEVEL 6-10; Start 09/14/18 at 14:30; Status Hold Prochlorperazine (Compazine) 10 mg Q4H PRN PO NAUSEA AND/OR VOMITING; Start 09/14/18 at 14:30 Ondansetron HCl (Zofran Inj) 4 mg Q6H PRN IV NAUSEA AND/OR VOMITING; Start 09/14/18 at 14:30 Docusate Sodium (Colace) 100 mg BID PO ; Start 09/15/18 at 09:00 Acetaminophen (Tylenol Tab) 650 mg Q4H PRN PO fever; Start 09/14/18 at 14:30 IV Flush (NS 3 ml) 3 ml PER PROTOCOL IV ; Start 09/14/18 at 14:30 Hydromorphone HCl (Dilaudid CIG[employer] MAKER) Q4PCA IV Last administered on 09/16/18at 04:13; Admin Dose 0.2 MG; Start 09/14/18 at 14:30 Naloxone HCl (Narcan) 0.2 mg Q2M PRN IV overdose; Start 09/14/18 at 14:30 Tamsulosin HCl (Flomax) 0.4 mg HS PO Last administered on 09/14/18at 21:13; Admin Dose 0.4 MG; Start 09/14/18 at 21:00 Lorazepam (Ativan) 0.5 mg Q12 PRN IV ANXIETY Last administered on 09/15/18at 23:09; Admin Dose 0.5 MG; Start 09/14/18 at 21:00 Albuterol (Proventil 0.083% (Neb)) 2.5 mg Q4H RESP THERAPY PRN HHN SHORTNESS OF BREATH Last administered on 09/15/18at 04:02; Admin Dose 2.5 MG; Start 09/15/18 at 03:08 Enalaprilat (Vasotec Iv) 1.25 mg Q6H IV Last administered on 09/16/18at 08:41; Admin Dose 1.25 MG; Start 09/15/18 at 09:30 Sodium Chloride 1,000 ml @ 100 mls/hr Q10H IV Last administered on 09/15/18at 23:30; Admin Dose 100 MLS/HR; Start 09/15/18 at 09:00 Hydralazine HCl (Apresoline) 10 mg Q6 IV Last administered on 09/16/18at 07:03; Admin Dose 10 MG; Start 09/15/18 at 09:00 Metoprolol Tartrate (Lopressor) 5 mg Q6 IV ; Start 09/16/18 at 09:00; Status UNV ANIL RODRIGUEZ MD Sep 16, 2018 08:50
[2018-09-16] MEDS ORDERED: DEXAMETHASONE 10 MG/ML 1 ML INJ IM ONE (09:30)
[2018-09-16] MEDS: METOPROLOL 5 MG INJ IV SCH ×3 (09:34→17:43)
[2018-09-16] MEDS ORDERED: DEXAMETHASONE 10 MG/ML 1 ML INJ IV ONE (10:00)
[2018-09-16] MEDS: LORAZEPAM 4 MG/ML VIAL IV PRN (10:15)
--- NOTE | 2018-09-16 12:02 | RADRPT ---
Vent Rate: 117 bpm RR Interval: 0 msec [place] Interval: 148 msec QRS Duration: 100 msec QT Interval: 348 msec QTC Interval: 485 msec P-R-T [place]: 40 - 7 - 55 degrees Sinus tachycardia Cannot rule out Inferior infarct , age undetermined Abnormal ECG Electronically Signed By: Warren oJrge [id number]
[2018-09-16] MEDS: TAMSULOSIN (SR) 0.4 MG CAP PO SCH (21:00)
[2018-09-16] MEDS ORDERED: ONDANSETRON 4 MG INJ IV PRN (21:30)
[2018-09-16] MEDS ORDERED: LORAZEPAM 4 MG/ML VIAL IV PRN (21:30)
--- NOTE | 2018-09-16 21:56 | CONS ---
Date/Time of Note Date/Time of Note DATE: 09/16/18 TIME: 21:51 Assessment/Plan Assessment/Plan Result Diagram: 09/16/18 0637 09/16/18 0637 Results 24hrs Laboratory Tests Test 09/16/18 06:37 09/16/18 09:30 White Blood Count 15.6 H Red Blood Count 4.90 Hemoglobin 14.3 Hematocrit 42.0 Mean Corpuscular Volume 85.7 Mean Corpuscular Hemoglobin 29.2 Mean Corpuscular Hemoglobin Concent 34.0 Red Cell Distribution Width 12.9 Platelet Count 231 Mean Platelet Volume 10.3 Immature Granulocytes % 0.400 Neutrophils % 69.9 Lymphocytes % 17.1 Monocytes % 12.5 H Eosinophils % 0.0 Basophils % 0.1 Nucleated Red Blood Cells % 0.0 Immature Granulocytes # 0.070 H Neutrophils # 10.9 H Lymphocytes # 2.7 Monocytes # 2.0 H Eosinophils # 0.0 Basophils # 0.0 Nucleated Red Blood Cells # 0.0 Sodium Level 145 H Potassium Level 4.0 Chloride Level 104 Carbon Dioxide Level 28 Anion Gap 13 Blood Urea Nitrogen 21 H Creatinine 0.78 Est Glomerular Filtrat Rate mL/min > 60 Glucose Level 157 Calcium Level 9.7 Phosphorus Level 3.7 Magnesium Level 1.8 Thyroid Stimulating Hormone (TSH) 0.462 L Urine Color YELLOW Urine Clarity CLEAR Urine pH 8.0 Urine Specific [place] 1.019 Urine Ketones NEGATIVE Urine Nitrite NEGATIVE Urine Bilirubin NEGATIVE Urine Urobilinogen 1+ H Urine Leukocyte Esterase NEGATIVE Urine Microscopic RBC 98 H Urine Microscopic WBC 5 Urine Hemoglobin 2+ H Urine Glucose NEGATIVE Urine Total Protein 2+ H Consultation Date/Type/Reason Admit Date/Time Sep 14, 2018 at 05:48 Initial Consult Date 24 HR Interval Summary Free Text/Dictation 48 yo M POD#2 s/p C5-C7 ACDF. Drain w/ decreased output. [facility]. Complains of dysphagia. IV decadron given today 6mg x1. Speech therapy evaluated him today and pt made NPO. Improved tolerance w/ PT today and ambulated 200 feet. Pt w/ continued nausea, zofran made into q [address] C- spine reviewed. Ct shows graft and implant in good placement w/ advent of disk height from C5-C7. Will d/c drain in am and continue to monitor closely. Exam/Review of Systems Vital Signs Vitals Vital Signs Date Temp Pulse Resp B/P (MAP) Pulse Ox O2 O2 Flow FiO2 Time Delivery Rate 09/16/18 98.2 93 19 166/89 95 20:00 (114) 09/16/18 3.0 14:28 09/15/18 Nasal 20:00 Cannula Intake and Output 09/15/18 09/15/18 09/16/18 1515:00 23:00 07:00 IntakeIntake Total 650 ml 650 ml 0 ml OutputOutput Total 435 ml 835 ml 1810 ml BalanceBalance 215 ml -185 ml -1810 ml Medications Medications Current Medications Acetaminophen/ Hydrocodone Bitart ([place] (5/325)) 1 tab Q4H PRN PO PAIN LEVEL 1-5; Start 09/14/18 at 14:30; Status Hold Acetaminophen/ Hydrocodone Bitart ([place] (5/325)) 2 tab Q4H PRN PO PAIN LEVEL 6-10; Start 09/14/18 at 14:30; Status Hold Prochlorperazine (Compazine) 10 mg Q4H PRN PO NAUSEA AND/OR VOMITING; Start 09/14/18 at 14:30 Docusate Sodium (Colace) 100 mg BID PO ; Start 09/15/18 at 09:00 Acetaminophen (Tylenol Tab) 650 mg Q4H PRN PO fever; Start 09/14/18 at 14:30 IV Flush (NS 3 ml) 3 ml PER PROTOCOL IV ; Start 09/14/18 at 14:30 Hydromorphone HCl (Dilaudid BROOMMAKER) Q4PCA IV Last administered on 09/16/18at 04:13; Admin Dose 0.2 MG; Start 09/14/18 at 14:30 Naloxone HCl (Narcan) 0.2 mg Q2M PRN IV overdose; Start 09/14/18 at 14:30 Tamsulosin HCl (Flomax) 0.4 mg HS PO Last administered on 09/14/18at 21:13; Admin Dose 0.4 MG; Start 09/14/18 at 21:00 Albuterol (Proventil 0.083% (Neb)) 2.5 mg Q4H RESP THERAPY PRN HHN SHORTNESS OF BREATH Last administered on 09/15/18at 04:02; Admin Dose 2.5 MG; Start 09/15/18 at 03:08 Enalaprilat (Vasotec Iv) 1.25 mg Q6H IV Last administered on 09/16/18at 15:03; Admin Dose 1.25 MG; Start 09/15/18 at 09:30 Sodium Chloride 1,000 ml @ 100 mls/hr Q10H IV Last administered on 09/16/18at 09:34; Admin Dose 100 MLS/HR; Start 09/15/18 at 09:00 Hydralazine HCl (Apresoline) 10 mg Q6 IV Last administered on 09/16/18at 17:45; Admin Dose 10 MG; Start 09/15/18 at 09:00 Metoprolol Tartrate (Lopressor) 5 mg Q6 IV Last administered on 09/16/18at 17:43; Admin Dose 5 MG; Start 09/16/18 at 09:00 Ondansetron HCl (Zofran Inj) 4 mg Q4H PRN IV NAUSEA AND/OR VOMITING; Start 09/16/18 at 21:30 Lorazepam (Ativan) 0.5 mg Q6H PRN IV ANXIETY; Start 09/16/18 at 21:30 BRITTANY BAUMAN MD Sep 16, 2018 21:56
[2018-09-17] VITALS (10 sets, daily range): BP systolic 140–162; BP diastolic 78–88; PULSE 74–103; RESP 18–20
[2018-09-17] MEDS: SOD CHLORIDE 0.9% 1,000 ML IV SCH (00:14)
[2018-09-17] MEDS: METOPROLOL 5 MG INJ IV SCH ×3 (00:50→12:22)
[2018-09-17] MEDS: ENALAPRILAT 2.5 MG INJ IV SCH ×3 (04:44→15:26)
[2018-09-17] MEDS: hydrALAzine 20 MG INJ IV SCH ×3 (06:32→12:22)
--- NOTE | 2018-09-17 08:27 | PN ---
Date/Time of Note Date/Time of Note DATE: 09/17/18 TIME: 08:22 Assessment/Plan VTE Prophylaxis Risk score (from Ns)>0 risk: 3 SCD applied (from Ns): Yes SCD contraindicated: other (recent spine surgery) Pharmacological prophylaxis: NA/contraindicated Pharm contraindication: other Lines/Catheters IV [facility] Peripheral IV Urinary Cath still in place: No Assessment/Plan Assessment/Plan 1. Post op cx spine surgery, dysphagia improving as is pain 2. BP controlled on present regimen as is tachycardia 3. Mild hypernatremia, IV changed. 4. Can transfer to med floor once taking po meds without difficulty Result Diagram: 09/17/1855709/17/1858 Results 24hrs Laboratory Tests Test 09/16/18 09:30 09/17/18 05:58 Urine Color YELLOW Urine Clarity CLEAR Urine pH 8.0 Urine Specific [place] 1.019 Urine Ketones NEGATIVE Urine Nitrite NEGATIVE Urine Bilirubin NEGATIVE Urine Urobilinogen 1+ H Urine Leukocyte Esterase NEGATIVE Urine Microscopic RBC 98 H Urine Microscopic WBC 5 Urine Hemoglobin 2+ H Urine Glucose NEGATIVE Urine Total Protein 2+ H White Blood Count 9.4 # Red Blood Count 4.48 L Hemoglobin 13.2 L Hematocrit 39.0 L Mean Corpuscular Volume 87.1 Mean Corpuscular Hemoglobin 29.5 Mean Corpuscular Hemoglobin Concent 33.8 Red Cell Distribution Width 12.6 Platelet Count 177 # Mean Platelet Volume 10.7 H Immature Granulocytes % 0.300 Neutrophils % 63.1 Lymphocytes % 23.9 Monocytes % 12.5 H Eosinophils % 0.1 Basophils % 0.1 Nucleated Red Blood Cells % 0.0 Immature Granulocytes # 0.030 Neutrophils # 5.9 Lymphocytes # 2.3 Monocytes # 1.2 H Eosinophils # 0.0 Basophils # 0.0 Nucleated Red Blood Cells # 0.0 Sodium Level 145 H Potassium Level 3.8 Chloride Level 105 Carbon Dioxide Level 28 Anion Gap 12 Blood Urea Nitrogen 24 H Creatinine 0.83 Est Glomerular Filtrat Rate mL/min > 60 Glucose Level 141 Calcium Level 9.3 Phosphorus Level 3.9 Magnesium Level 2.0 Subjective 24 Hr Interval Summary ENT: other (can swallow some liquid this am) Respiratory: cough (mild) Cardiovascular: No chest pain Gastrointestinal: no complaints, other (diff swallowing) Genitourinary: no complaints Musculoskeletal: neck pain (mod discomfort) Exam/Review of Systems Vital Signs Vitals Vital Signs Date Temp Pulse Resp B/P (MAP) Pulse Ox O2 O2 Flow FiO2 Time Delivery Rate 09/17/18 97.5 94 20 140/78 93 07:16 (98) 09/16/18 3.0 14:28 09/15/18 Nasal 20:00 Cannula Intake and Output 09/16/18 09/16/18 09/17/18 1515:00 23:00 07:00 IntakeIntake Total 250 ml 800 ml 800 ml OutputOutput Total 350 ml 811 ml 807 ml BalanceBalance -100 ml -11 ml -7 ml Exam Neck: No jvd Respiratory: clear to auscultation Cardiovascular: regular rate and rhythm Gastrointestinal: soft Extremities: No edema Medications Medications Current Medications Acetaminophen/ Hydrocodone Bitart ([place] (5/325)) 1 tab Q4H PRN PO PAIN LEVEL 1-5; Start 09/14/18 at 14:30; Status Hold Acetaminophen/ Hydrocodone Bitart ([place] (5/325)) 2 tab Q4H PRN PO PAIN LEVEL 6-10; Start 09/14/18 at 14:30; Status Hold Prochlorperazine (Compazine) 10 mg Q4H PRN PO NAUSEA AND/OR VOMITING; Start 09/14/18 at 14:30 Docusate Sodium (Colace) 100 mg BID PO ; Start 09/15/18 at 09:00 Acetaminophen (Tylenol Tab) 650 mg Q4H PRN PO fever; Start 09/14/18 at 14:30 IV Flush (NS 3 ml) 3 ml PER PROTOCOL IV ; Start 09/14/18 at 14:30 Hydromorphone HCl (Dilaudid SHERIFF'S DETECTIVE) Q4PCA IV Last administered on 09/16/18at 04:13; Admin Dose 0.2 MG; Start 09/14/18 at 14:30 Naloxone HCl (Narcan) 0.2 mg Q2M PRN IV overdose; Start 09/14/18 at 14:30 Tamsulosin HCl (Flomax) 0.4 mg HS PO Last administered on 09/14/18at 21:13; Admin Dose 0.4 MG; Start 09/14/18 at 21:00 Albuterol (Proventil 0.083% (Neb)) 2.5 mg Q4H RESP THERAPY PRN HHN SHORTNESS OF BREATH Last administered on 09/15/18 04:02; Admin Dose 2.5 MG; Start 09/15/18 at 03:08 Enalaprilat (Vasotec Iv) 1.25 mg Q6H IV Last administered on 09/17/18at 04:44; Admin Dose 1.25 MG; Start 09/15/18 at 09:30 Sodium Chloride 1,000 ml @ 100 mls/hr Q10H IV Last administered on 09/17/18at 00:14; Admin Dose 100 MLS/HR; Start 09/15/18 at 09:00 Hydralazine HCl (Apresoline) 10 mg Q6 IV Last administered on 09/17/18at 06:32; Admin Dose 10 MG; Start 09/15/18 at 09:00 Metoprolol Tartrate (Lopressor) 5 mg Q6 IV Last administered on 09/17/18at 0 6:32; Admin Dose 5 MG; Start 09/16/18 at 09:00 Ondansetron HCl (Zofran Inj) 4 mg Q4H PRN IV NAUSEA AND/OR VOMITING; Start 09/16/18 at 21:30 Lorazepam (Ativan) 0.5 mg Q6H PRN IV ANXIETY; Start 09/16/18 at 21:30 ANIL RODRIGUEZ MD Sep 17, 2018 08:27
[2018-09-17] MEDS: DOCUSATE SODIUM 100 MG CAP PO SCH ×3 (09:00→21:26)
[2018-09-17] MEDS: DEXTROSE 5%-0.225% NACL 1,000 ML IV SCH ×2 (09:05→22:21)
[2018-09-17] MEDS ORDERED: ARTIFICIAL TEARS 15 ML OPH BOTH EYES PRN (11:00)
[2018-09-17] MEDS ORDERED: METOPROLOL (XL) 50 MG TAB PO ONE (15:30)
[2018-09-17] MEDS ORDERED: LISINOPRIL 20 MG TAB PO ONE (16:00)
--- NOTE | 2018-09-17 16:30 | CONS ---
Date/Time of Note Date/Time of Note DATE: 09/17/18 TIME: 16:24 Assessment/Plan Assessment/Plan Result Diagram: 09/17/18 0558 09/17/18 0558 Results 24hrs Laboratory Tests Test 09/17/18 05:58 White Blood Count 9.4 # Red Blood Count 4.48 L Hemoglobin 13.2 L Hematocrit 39.0 L Mean Corpuscular Volume 87.1 Mean Corpuscular Hemoglobin 29.5 Mean Corpuscular Hemoglobin Concent 33.8 Red Cell Distribution Width 12.6 Platelet Count 177 # Mean Platelet Volume 10.7 H Immature Granulocytes % 0.300 Neutrophils % 63.1 Lymphocytes % 23.9 Monocytes % 12.5 H Eosinophils % 0.1 Basophils % 0.1 Nucleated Red Blood Cells % 0.0 Immature Granulocytes # 0.030 Neutrophils # 5.9 Lymphocytes # 2.3 Monocytes # 1.2 H Eosinophils # 0.0 Basophils # 0.0 Nucleated Red Blood Cells # 0.0 Sodium Level 145 H Potassium Level 3.8 Chloride Level 105 Carbon Dioxide Level 28 Anion Gap 12 Blood Urea Nitrogen 24 H Creatinine 0.83 Est Glomerular Filtrat Rate mL/min > 60 Glucose Level 141 Calcium Level 9.3 Phosphorus Level 3.9 Magnesium Level 2.0 Consultation Date/Type/Reason Admit Date/Time Sep 14, 2018 at 05:48 Initial Consult Date 24 HR Interval Summary Free Text/Dictation S: 48 yo M POD#3 s/ C5-C7 ACDF. Dysphagia improving. Seen by speech today. tolerating clears. Started on clear diet. Pain under better control. O: Vital Signs Date Temp Pulse Resp B/P (MAP) Pulse Ox O2 O2 Flow FiO2 Time Delivery Rate 09/17/18 99.2 87 20 147/79 95 15:00 (101) 09/16/18 3.0 14:28 09/15/18 Nasal 20:00 Cannula Gen: AAOx3, NAD Spine: difficult exam due to pain. Incision c/d/i, RUE: 12/11 D/B/T/WE/WF,IO; LUE: difficult to examine due to pain. 11/10 B/T/WE/WF/IO (similar to pre-op) A/P:48 yo M POD#3 s/ C5-C7 ACDF 1. appreciate med recs 2. Drain output 16 mL over 24hrs, Drain was d/c today 3. advance diet to clears 4. aru consult 5. transfer to med/surg (4w) once tolerating PO meds Exam/Review of Systems Vital Signs Vitals Vital Signs Date Temp Pulse Resp B/P (MAP) Pulse Ox O2 O2 Flow FiO2 Time Delivery Rate 09/17/18 99.2 87 20 147/79 95 15:00 (101) 09/16/18 3.0 14:28 09/15/18 Nasal 20:00 Cannula Intake and Output 09/16/18 09/16/18 09/17/18 1515:00 23:00 07:00 IntakeIntake Total 250 ml 800 ml 800 ml OutputOutput Total 350 ml 811 ml 807 ml BalanceBalance -100 ml -11 ml -7 ml Medications Medications Current Medications Acetaminophen/ Hydrocodone Bitart ([place] (5/325)) 1 tab Q4H PRN PO PAIN LEVEL 1-5; Start 09/14/18 at 14:30; Status Hold Acetaminophen/ Hydrocodone Bitart ([place] (5/325)) 2 tab Q4H PRN PO PAIN LEVEL 6-10; Start 09/14/18 at 14:30; Status Hold Prochlorperazine (Compazine) 10 mg Q4H PRN PO NAUSEA AND/OR VOMITING; Start 09/14/18 at 14:30 Docusate Sodium (Colace) 100 mg BID PO ; Start 09/15/18 at 09:00 Acetaminophen (Tylenol Tab) 650 mg Q4H PRN PO fever; Start 09/14/18 at 14:30 IV Flush (NS 3 ml) 3 ml PER PROTOCOL IV ; Start 09/14/18 at 14:30 Hydromorphone HCl (Dilaudid DUCT CLEANER) Q4PCA IV Last administered on 09/16/18at 04:13; Admin Dose 0.2 MG; Start 09/14/18 at 14:30 Naloxone HCl (Narcan) 0.2 mg Q2M PRN IV overdose; Start 09/14/18 at 14:30 Tamsulosin HCl (Flomax) 0.4 mg HS PO Last administered on 09/14/18at 21:13; Admin Dose 0.4 MG; Start 09/14/18 at 21:00 Albuterol (Proventil 0.083% (Neb)) 2.5 mg Q4H RESP THERAPY PRN HHN SHORTNESS OF BREATH Last administered on 09/15/18 04:02; Admin Dose 2.5 MG; Start 09/15/18 at 03:08 Enalaprilat (Vasotec Iv) 1.25 mg Q6H IV Last administered on 09/17/18 09:06; Admin Dose 1.25 MG; Start 09/15/18 at 09:30 Hydralazine HCl (Apresoline) 10 mg Q6 IV Last administered on 09/17/18 12:22; Admin Dose 10 MG; Start 09/15/18 at 09:00 Metoprolol Tartrate (Lopressor) 5 mg Q6 IV Last administered on 09/17/18 12:22; Admin Dose 5 MG; Start 09/16/18 at 09:00 Ondansetron HCl (Zofran Inj) 4 mg Q4H PRN IV NAUSEA AND/OR VOMITING; Start 09/16 at 21:30 Lorazepam (Ativan) 0.5 mg Q6H PRN IV ANXIETY; Start 09/16/18 at 21:30 Dextrose/Sodium Chloride 1,000 ml @ 80 mls/hr [id number] IV Last administered on 09/17/18 09:05; Admin Dose 80 MLS/HR; Start 09/17/18 at 08:30 Eye Lubricant (Artificial Tears Oph) 2 drop Q4 PRN BOTH EYES DRY EYES Last administered on 09/17/18 13:13; Admin Dose 2 DROP; Start 09/17/18 at 11:00 BRITTANY BAUMAN MD Sep 17, 2018 16:30
[2018-09-17] MEDS: TAMSULOSIN (SR) 0.4 MG CAP PO SCH ×2 (21:00→21:25)
[2018-09-17] MEDS: LISINOPRIL 20 MG TAB PO SCH ×2 (21:00→21:26)
[2018-09-17] MEDS ORDERED: hydrALAzine 20 MG INJ IV PRN (23:30)
[2018-09-18 00:22] VITALS: BP 169/93; PULSE 87; RESP 17
[2018-09-18] MEDS: ENALAPRILAT 1.25 MG INJ IV SCH ×3 (00:25→12:31)
[2018-09-18 00:26] VITALS: BP 169/93; PULSE 86; RESP 18
[2018-09-18] MEDS ORDERED: ACETAMINOPHEN 1000MG/100ML IV 100 ML IVPB ONE (06:30)
[2018-09-18 08:23] VITALS: BP 159/81; PULSE 100; RESP 17
[2018-09-18] MEDS: LISINOPRIL 20 MG TAB PO SCH ×3 (09:00→12:42)
[2018-09-18] MEDS: DOCUSATE SODIUM 100 MG CAP PO SCH (09:00)
[2018-09-18] MEDS: DEXTROSE 5%-0.225% NACL 1,000 ML IV SCH ×2 (09:30→12:53)
[2018-09-18] MEDS ORDERED: LORAZEPAM 2 MG INJ IV PRN (11:30)
--- NOTE | 2018-09-18 12:18 | CONS ---
Date/Time of Note Date/Time of Note DATE: 09/18/18 TIME: 12:14 Assessment/Plan Assessment/Plan Hospital Course 1. Post op cx spine surgery, dysphagia improving as is pain 2. BP controlled on present regimen as is tachycardia 3. Mild hypernatremia, IV changed. Hypernatremia is correcting. 4. He was transferred to med floor yesterday and he is starting to take po meds . Will try to transition over to oral medication and taper off IV medication. We will continue IV fluids for now. Result Diagram: 09/18/18 0445 09/18/18 0445 Results 24hrs Laboratory Tests Test 09/18/18 04:45 White Blood Count 10.3 Red Blood Count 4.73 Hemoglobin 14.0 Hematocrit 40.5 L Mean Corpuscular Volume 85.6 Mean Corpuscular Hemoglobin 29.6 Mean Corpuscular Hemoglobin Concent 34.6 Red Cell Distribution Width 11.9 Platelet Count 205 Mean Platelet Volume 10.1 Immature Granulocytes % 0.400 Neutrophils % 62.8 Lymphocytes % 25.0 Monocytes % 10.6 Eosinophils % 1.0 Basophils % 0.2 Nucleated Red Blood Cells % 0.0 Immature Granulocytes # 0.040 H Neutrophils # 6.5 Lymphocytes # 2.6 Monocytes # 1.1 H Eosinophils # 0.1 Basophils # 0.0 Nucleated Red Blood Cells # 0.0 Sodium Level 143 Potassium Level 3.5 Chloride Level 103 Carbon Dioxide Level 27 Anion Gap 13 Blood Urea Nitrogen 20 Creatinine 0.74 Est Glomerular Filtrat Rate mL/min > 60 Glucose Level 150 Calcium Level 9.3 Phosphorus Level 3.5 Magnesium Level 1.8 Consultation Date/Type/Reason Admit Date/Time Sep 14, 2018 at 05:48 Initial Consult Date 24 HR Interval Summary Free Text/Dictation This patient was transferred yesterday from telemetry to the orthopedic floor. He is sitting up in a chair and is awake and alert. He is able to swallow some this morning. He did eat some Jell-O. Constitutional: improved Exam/Review of Systems Vital Signs Vitals Vital Signs Date Temp Pulse Resp B/P (MAP) Pulse Ox O2 O2 Flow FiO2 Time Delivery Rate 09/18/18 20 09:00 09/18/18 98.1 100 159/81 95 Nasal 08:23 (107) Cannula 09/17/18 3.0 16:28 Intake and Output 09/17/18 09/17/18 09/18/18 1515:00 23:00 07:00 IntakeIntake Total 1200 ml 610 ml OutputOutput Total 700 ml BalanceBalance 1200 ml -90 ml Exam Constitutional: alert, oriented, frail Respiratory: clear to auscultation, normal air movement Cardiovascular: regular rate and rhythm Gastrointestinal: soft, non-tender Musculoskeletal: nl extremities to inspection Medications Medications Current Medications Prochlorperazine (Compazine) 10 mg Q4H PRN PO NAUSEA AND/OR VOMITING; Start 09/14/18 at 14:30 Docusate Sodium (Colace) 100 mg BID PO ; Start 09/15/18 at 09:00 Acetaminophen (Tylenol Tab) 650 mg Q4H PRN PO fever; Start 09/14/18 at 14:30 IV Flush (NS 3 ml) 3 ml PER PROTOCOL IV ; Start 09/14/18 at 14:30 Hydromorphone HCl (Dilaudid LONG TERM CARE PHLEBOTOMIST) Q4PCA IV Last administered on 09/16/18at 04:13; Admin Dose 0.2 MG; Start 09/14/18 at 14:30 Naloxone HCl (Narcan) 0.2 mg Q2M PRN IV overdose; Start 09/14/18 at 14:30 Tamsulosin HCl (Flomax) 0.4 mg HS PO Last administered on 09/14/18at 21:13; Admin Dose 0.4 MG; Start 09/14/18 at 21:00 Albuterol (Proventil 0.083% (Neb)) 2.5 mg Q4H RESP THERAPY PRN HHN SHORTNESS OF BREATH Last administered on 09/15/18at 04:02; Admin Dose 2.5 MG; Start 09/15/18 at 03:08 Ondansetron HCl (Zofran Inj) 4 mg Q4H PRN IV NAUSEA AND/OR VOMITING Last administered on 09/18/18 09:29; Admin Dose 4 MG; Start 09/16/18 at 21:30 Dextrose/Sodium Chloride 1,000 ml @ 80 mls/hr [id number] IV Last administered on 09/17/18 22:21; Admin Dose 80 MLS/HR; Start 09/17/18 at 08:30 Eye Lubricant (Artificial Tears Oph) 2 drop Q4 PRN BOTH EYES DRY EYES Last administered on 09/17/18at 13:13; Admin Dose 2 DROP; Start 09/17/18 at 11:00 Hydralazine HCl (Apresoline) 50 mg TID PO ; Start 09/17/18 at 21:00 Lisinopril (Zestril) 20 mg BID PO ; Start 09/17/18 at 21:00 Enalaprilat (Vasotec Iv) 1.25 mg Q6H IV Last administered on 09/18/18at 06:48; Admin Dose 1.25 MG; Start 09/17/18 at 23:30 Hydralazine HCl (Apresoline) 10 mg Q6H PRN IV ELEVATED BLOOD PRESSURE Last administered on 09/18/18at 04:58; Admin Dose 10 MG; Start 09/17/18 at 23:30 Lorazepam (Ativan) 0.5 mg Q6H PRN IV ANXIETY; Start 09/18/18 at 11:30 TIARRA MACARIO MD Sep 18, 2018 12:18
[2018-09-18] MEDS ORDERED: METHOCARBAMOL 500 MG TAB PO PRN (12:30)
[2018-09-18] MEDS ORDERED: OXYCODONE/ACETAMINOPHEN (10/325) TAB PO PRN (12:30)
[2018-09-18] MEDS ORDERED: HYDROmorphONE 0.5 MG/0.5 ML SYG IV PRN (12:30)
[2018-09-18 12:40] VITALS: BP 136/87; PULSE 85; RESP 20
[2018-09-18] MEDS ORDERED: ACETAMINOPHEN 1000MG/100ML IV 100 ML IVPB PRN (13:30)
[2018-09-18 14:39] VITALS: BP 156/87; PULSE 94; RESP 20
--- NOTE | 2018-10-02 14:59 | DS ---
DATE OF ADMISSION: 09/14/2018 DATE OF DISCHARGE: 09/18/2018 DISPOSITION: Acute rehabilitation. DIAGNOSIS ON ADMISSION: Severe degenerative disk disease C5 through C7 with foraminal stenosis with radiculopathy. DISCHARGE DIAGNOSES: Severe degenerative disk disease C5 through C7 with foraminal stenosis with rad iculopathy. PROCEDURE PERFORMED DURING THIS ADMISSION: Anterior cervical diskectomy and fusion C5 through C7 on 09/14/2018. HOSPITAL COURSE: The patient underwent a C5 through C7 anterior cervical diskectomy and fusion proce dure. His postoperative course was complicated with pain and dysphagia. Prior to discharge, he was tolerating a clear diet. He was seen by speech pathology who noted significant gradual improvement i n his swallowing. He also had some gradual improving in dysphonia which improved prior to his discha rge. MEDICATIONS AT DISCHARGE: [place] 5/325 mg 1 to 2 tabs q.4 to 6 hours p.r.n. pain. He was told to res ume all home pain medications. ACTIVITY: The patient was told to avoid any heavy lifting greater than 20 pounds. He was told to we ar his cervical collar when out of bed at all times. FOLLOWUP APPOINTMENTS: The patient was told to follow up with Dr. Liriano 1 to 2 weeks. He was to ld to follow up at earlier time if he had any motor or sensory changes or issues with his wound. Dictated By: BRITTANY VELASQUEZ/MASOOD Conf#: [id number] DID#: [id number] CC: ANIL RODRIGUEZ MD;*EndCC*
== END 2018-09-18 20:00 | DRG 472 ==
LOC: REC 05:48 → MS1 16:26 → TEL 09-15 19:49 → MS1 09-17 19:34
PROVIDERS: ADMIT Orthopaedic Surgery; ATTEND Orthopaedic Surgery
PROC: 0RT30ZZ Resection of Cervical Vertebral Disc, Open Approach (ICD-10-PCS; 2018-09-14)
PROC: 0RG20K0 Fusion of 2 or more Cervical Vertebral Joints with Nonautologous Tissue Substitute, Anterior Approach, Anterior Column, Open Approach (ICD-10-PCS; principal; 2018-09-14 07:30)
DX: M50.122 Cervical disc disorder at C5-C6 level with radiculopathy (principal); E87.0 Hyperosmolality and hypernatremia; M48.02 Spinal stenosis, cervical region; R13.19 Other dysphagia; R00.0 Tachycardia, unspecified; M41.82 Other forms of scoliosis, cervical region; I10 Essential (primary) hypertension
CPT/HCPCS: 71045; 72040; 72125; 80048; 81001; 83735; 84100; 84443; 85014; 85018; 85025; 87086; 92526; 92610; 93005; 94664; 97110; 97116; 97161; 97164; 97530; J0131; J0360; J1100; J1170; J2060; J2250; J2370; J2405; J2765; J3010; J7030; J7042